=== PATIENT | female | born 1975 | race Caucasian/White ===

== ENCOUNTER 2017-02-08 11:30 | Outpatient (CLI) | payer OTHER | END 2017-02-08 11:31 | disposition home or self-care (01) | DX: R00.0 Tachycardia, unspecified (principal); Z13.29 Encounter for screening for other suspected endocrine disorder ==

== ENCOUNTER 2017-02-08 13:19 | Outpatient (CLI) | payer OTHER | END 2017-02-08 13:20 | disposition home or self-care (01) | DX: R00.0 Tachycardia, unspecified (principal); Z13.29 Encounter for screening for other suspected endocrine disorder ==

== ENCOUNTER 2017-11-07 14:21 | Outpatient (CLI) | payer OTHER ==
--- NOTE | 2017-11-12 13:55 | Mammography Report ---
DATE OF SERVICE: 11/07/2017 DIGITAL SCREENING MAMMOGRAM: 11/07/2017 CLINICAL INDICATION: A 42-year-old for screening. COMPARISON: 08/2016, 05/2014. TECHNIQUE: Routine CC and MLO projections were obtained of the breasts. FINDINGS: The breasts demonstrate heterogeneously dense fibroglandular parenchyma bilaterally. Punc aquino, typically benign calcifications are present. No suspicious masses, clustered microcalcifications, or regions of architectural distortion are identified. IMPRESSION: Benign findings. RECOMMENDATIONS: Routine annual screening unless otherwise clinically indicated. BIRADS category 2 - Benign findings. STANDARD QUALIFYING STATEMENTS 1. This examination was reviewed with the aid of Computed-Aided Detection (CAD). 2. A negative or benign imaging report should not delay biopsy if clinically suspicious findings are present. Consider surgical consultation if warranted. More than 5% of cancers are not identified by imaging. 3. Dense breasts may obscure an underlying neoplasm. TD: 11/08/2017 22:22
== END 2017-11-07 14:22 | disposition home or self-care (01) ==
LOC: DI.S 14:21
PROVIDERS: ATTEND Nurse Practitioner Family
DX: Z12.31 Encounter for screening mammogram for malignant neoplasm of breast (principal)
CPT/HCPCS: 77067

== ENCOUNTER 2018-03-18 13:20 | Emergency (ER) | payer OTHER ==
[2018-03-18 13:32] VITALS: BP 120/76
[2018-03-18] MEDS ORDERED: TETANUS/DIPHTHERIA/PERTUSSIS 0.5 ML SYRINGE IM ONE (14:56)
--- NOTE | 2018-03-18 15:03 | ED Physician Documentation ---
PD HPI UPPER EXT INJURY - Stated complaint Stated Complaint: FINGER SLICER - Chief complaint Chief Complaint: Laceration - History obtained from History obtained from: Patient - History of Present Illness Location: Left, Finger (middle) Type of injury: Laceration Where injury occurred: Work Timing - onset: Today Timing - duration: Minutes Timing - details: Abrupt onset, Still present Improved by: Rest Worsened by: Moving Contributing factors: No: Anticoagulated Similar symptoms before: Diagnosis (laceration) Recently seen: Not recently seen - Additonal information Additional information: 42 year old female with 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 She has a small flap laceration that involves the nail. It goes about one third [address] the way through the nail bed. She was able to control the bleeding with direct pressure and bleeding and continues to be controlled. She was able to work the rest of her shift with a covering over her finger Review of Systems Constitutional: denies: Fever Respiratory: denies: Cough GI: denies: Vomiting Skin: reports: Laceration (s) PD PAST MEDICAL HISTORY - Past Medical History Past Medical History: Yes Respiratory: Asthma EMERGENCY MEDICAL TECH: Ovarian cysts - Past Surgical History Past Surgical History: Yes /EMERGENCY MEDICAL TECH: LEEP (Cervical surgery) - Present Medications Home Medications: Ambulatory Orders Medication Instructions Recorded Confirmed Albuterol Sulfate [Ventolin Hfa] 1 puffs INH Q4H PRN 06/12/16 06/12/16 - Allergies Allergies/Adverse Reactions: Allergies Allergy/AdvReac Type Severity Reaction Status Date / Time amoxicillin Allergy Rash Verified 03/18/18 13:32 Sulfa (Sulfonamide Allergy Rash Verified 03/18/18 13:32 Antibiotics) - Social History Does the pt smoke?: No Smoking Status: Never smoker Does the pt drink ETOH?: No Does the pt have substance abuse?: No - Immunizations Immunizations are current?: No Immunizations: TDAP >10years/unknown - POLST Patient has POLST: No PD ED PE NORMAL - Vitals Vital signs reviewed: Yes (tachy ) - General General: Alert and oriented X 3, No acute distress, Well developed/nourished - HEENT HEENT: Atraumatic, PERRL - Respiratory Respiratory: No respiratory distress - Derm Derm: Normal color, Warm and dry, No rash - Extremities Extremities: Other (There is a 1cm laceration to the tip of the finger and this involves about 1/3 of the nail distally ) - Neuro Neuro: No motor deficit, No sensory deficit Eye Opening: Spontaneous Motor: Obeys Commands Verbal: Oriented GCS Score: 15 - Psych Psych: Normal mood, Normal affect Results - Vitals Vitals: Vital Signs - 24 hr 03/18/18 13:29 Temperature 36.4 C L Heart Rate 104 H Respiratory 15 Rate Blood Pressure 120/76 O2 Saturation 98 Oxygen O2 Source Room air Procedures - Laceration (location) finger tip Length in cm: 1 (through the nail with bleeding controlled. ) Wound type: Curved, Flap, Clean Neurovascular status: Sensory intact, Motor intact, Vascular intact Wound Preparation: Irrigated copiously NS Skin layer closure: Steri strips Other: Patient tolerated well, No complications, Neurovascular intact, Dressing applied, Tetanus booster given PD MEDICAL DECISION MAKING - ED course Complexity details: considered differential, d/w patient, d/w family ED course: 42-year-old female with a fingertip laceration that involves a the edge of the nail bed. Has good control of bleeding Steri-Strips are placed in the nail remains in place. Departure - Departure Disposition: 01 Home, Self Care Clinical Impression: Nailbed laceration, finger Qualifiers: Encounter type: initial encounter Qualified Code(s): S61.319A - Laceration without foreign body of unspecified finger with damage to nail, initial encounter Condition: Stable Instructions: ED Laceration Hand Follow-Up: Ileana Menjivar ARNP [Primary Care Provider] -
== END 2018-03-18 15:34 | disposition home or self-care (01) ==
LOC: ED 13:20
DX: S61.319A Laceration without foreign body of unspecified finger with damage to nail, initial encounter (principal); W31.82XA Contact with other commercial machinery, initial encounter; Y99.0 Civilian activity done for income or pay; Z23 Encounter for immunization
CPT/HCPCS: 1040M; 90471; 90715; 99282; 99283

== ENCOUNTER 2018-05-27 08:00 | Outpatient (CLI) | payer OTHER | END 2018-05-27 08:01 | LOC: LAB.R 08:00 | PROVIDERS: ATTEND Nurse Practitioner Family | DX: L98.9 Disorder of the skin and subcutaneous tissue, unspecified (principal) | CPT/HCPCS: 87070; 87205 ==

== ENCOUNTER 2018-07-30 08:00 | Outpatient (CLI) | payer OTHER | END 2018-07-30 08:01 | disposition home or self-care (01) | LOC: LAB.R 08:00 | PROVIDERS: ATTEND Nurse Practitioner | DX: J03.90 Acute tonsillitis, unspecified (principal) | CPT/HCPCS: 87070; 87077 ==

== ENCOUNTER 2018-08-06 08:04 | Outpatient (CLI) | payer OTHER ==
[2018-08-06 11:20] LABS: ALBUMIN 4.1 g/dL (3.2-5.5); ALBUMIN/GLOBULIN RATIO 1.4 (1.0-2.2); ALKALINE PHOSPHATASE 59 IU/L (42-121); ALT ALANINE AMINOTRANSFERASE 18 IU/L (10-60); AST ASPARTATE AMINOTRANSFERASE 18 IU/L (10-42); BILIRUBIN,TOTAL 0.4 mg/dL (0.2-1.0); BUN - BLOOD UREA NITROGEN 7 mg/dL (6-20); CALCIUM 8.6 mg/dL (8.5-10.3); CARBON DIOXIDE - CO2 24 mmol/L (21-32); CHLORIDE 107 mmol/L (101-111); CHOL/HDL RATIO 4.7 (<4.4); CHOLESTEROL 196 mg/dL; CREATININE 0.8 mg/dL (0.4-1.0); GFR - MDRD 78 (>89); GLUCOSE 91 mg/dL (70-100); HDL CHOLESTEROL 42 mg/dL; LDL CHOLESTEROL,CALCULATED 139 mg/dL; LDL/HDL RATIO 3.3 (<4.4); SODIUM 138 mmol/L (135-145); TOTAL PROTEIN 7.1 g/dL (6.7-8.2); VLDL CHOLESTEROL 15 mg/dL
== END 2018-08-06 08:05 | disposition home or self-care (01) ==
LOC: LAB.F 08:04
PROVIDERS: ATTEND Nurse Practitioner Family
DX: E78.5 Hyperlipidemia, unspecified (principal); Z13.1 Encounter for screening for diabetes mellitus
CPT/HCPCS: 36415; 80053; 80061; 83721

== ENCOUNTER 2018-11-28 15:14 | Outpatient (CLI) | payer OTHER ==
--- NOTE | 2018-12-01 09:25 | Mammography Report ---
Reason: ROUTINE MAMMO Procedure Date: 11/28/2018 Accession Number: [id number] / [id number] Procedure: MARKIE - Screening Mammo w/Jim CPT Code: FULL RESULT: EXAM: Screening Mammo w/Jim DATE: 11/28/2018 4:04 PM CLINICAL HISTORY: Screening encounter. Family history of breast cancer in a maternal grandmother at the age of 65. TECHNIQUE: Bilateral CC and MLO views were obtained. COMPARISON: 10/30/2017 through 05/25/2014. FINDINGS: The breasts demonstrate scattered fibroglandular densities bilaterally. There are typically benign coarse calcifications. No suspicious masses, clustered microcalcifications, or regions of architectural distortion are identified. IMPRESSION: Benign findings RECOMMENDATION: Routine annual screening unless otherwise clinically indicated. BIRADS CATEGORY 2: Benign findings STANDARD QUALIFYING STATEMENTS: 1. This examination was not reviewed with the aid of Computer-Aided Detection (CAD). 2. A negative or benign imaging report should not preclude biopsy if clinically suspicious findings are present. 3. Dense breasts may obscure an underlying neoplasm. 4. This examination was reviewed with the aid of 3D breast imaging (tomosynthesis).
== END 2018-11-28 15:15 | disposition home or self-care (01) ==
LOC: DI 15:14
PROVIDERS: ATTEND Nurse Practitioner
DX: Z12.31 Encounter for screening mammogram for malignant neoplasm of breast (principal); Z80.3 Family history of malignant neoplasm of breast
CPT/HCPCS: 77063; 77067

== ENCOUNTER 2019-12-03 08:02 | Emergency (ER) | payer OTHER ==
[2019-12-03 08:15] VITALS: BP 133/79
--- NOTE | 2019-12-03 08:17 | ED Physician Documentation ---
PD HPI SKIN - Stated complaint Stated Complaint: LEFT FOOT SWELLING - History obtained from History obtained from: Patient - History of Present Illness Timing - onset: Yesterday Timing - duration: Days (1-2) Timing - details: Gradual onset (She noticed feeling of irritation between the little and fourth toes yesterday so applied some ointment thinking it might be dry skin. Today she noted pain swelling and some redness around the area between the toes into the dorsum of the foot.) Location: LLE Quality / character: Painful, Discolored (red), Swelling. 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: LEEP (Cervical surgery) - Present Medications Home Medications: Ambulatory Orders Medication Instructions Recorded Confirmed Albuterol Sulfate [Ventolin Hfa] 1 puffs INH Q4H PRN 06/12/16 06/12/16 Doxycycline Monohydrate 100 mg PO BID #14 tablet 12/03/19 - Allergies Allergies/Adverse Reactions: Allergies Allergy/AdvReac Type Severity Reaction Status Date / Time amoxicillin Allergy Rash Verified 12/03/19 08:15 Sulfa (Sulfonamide Allergy Rash Verified 12/03/19 08:15 Antibiotics) - Social History Does the pt smoke?: No Smoking Status: Never smoker Does the pt drink ETOH?: No Does the pt have substance abuse?: No - Immunizations Immunizations are current?: No Immunizations: TDAP >10years/unknown - POLST Patient has POLST: No PD ED PE NORMAL - Vitals Vital signs reviewed: Yes - General General: Alert and oriented X 3, No acute distress, Well developed/nourished - Derm Derm: Warm and dry - Extremities Extremities: Other (There is redness with a small pustule blister between the fourth and fifth toes in the left foot. Some mild redness on the plantar crease. No foreign body noted. There is some redness with swelling in that area and mild red streak on the dorsum of the foot to the level of the proximal metatarsal area. No bony tenderness. She has good sensation color and capillary refill in the toes. I did hema the pustule with the scalpel tip and got a drop of pus out.) - Neuro Neuro: No motor deficit, No sensory deficit Results - Vitals Vitals: Vital Signs - 24 hr 12/03/19 08:12 Temperature 36.8 C Heart Rate 95 Respiratory 15 Rate Blood Pressure 133/79 H O2 Saturation 98 Oxygen O2 Source Room air Departure - Departure Disposition: Home, Self Care Clinical Impression: Left foot infection Condition: Stable Record reviewed to determine appropriate education?: Yes Instructions: ED Staph Infec Abx Tx Only Follow-Up: Anila Hernandez PA-C [Primary Care Provider] - Prescriptions: Doxycycline Monohydrate 100 mg PO BID #14 tablet Comments: Keep your foot elevated today to reduce swelling. Soak it in warm water 2-3 times a day today and tomorrow. You can continue ointment locally at the area. Doxycycline oral antibiotic twice daily for 5 to 7 days until the looks completely weird. Tylenol or ibuprofen if needed for pains. Forms: Activity restrictions
[2019-12-03] MEDS ORDERED: ACETAMINOPHEN 325 MG TABLET PO STA (08:26)
[2019-12-03] MEDS ORDERED: DOXYCYCLINE 100 MG TABLET PO STA (08:26)
== END 2019-12-03 08:42 | disposition home or self-care (01) ==
LOC: ED 08:02
DX: L08.9 Local infection of the skin and subcutaneous tissue, unspecified (principal)
CPT/HCPCS: 99282; 99283; A9270

== ENCOUNTER 2019-12-29 14:59 | Outpatient (CLI) | payer OTHER ==
--- NOTE | 2019-12-29 16:30 | Mammography Report ---
Reason: ROUTINE MAMMO Procedure Date: 12/29/2019 Accession Number: [id number] / [id number] Procedure: MARKIE - Screening Mammo w/Jim CPT Code: Final Report FULL RESULT: EXAM: Screening Mammo w/Jim DATE: 12/29/2019 3:49 PM CLINICAL HISTORY: Screening encounter. TECHNIQUE: (B) - Bilateral CC and MLO views were obtained. COMPARISON: 11/28/2018 through 05/25/2014. PARENCHYMAL PATTERN: (D) - The breast(s) demonstrate(s) heterogeneously dense fibroglandular parenchyma. FINDINGS: There are no suspicious masses, calcifications, or areas of distortion. IMPRESSION: Negative examination. BI-RADS category 1. RECOMMENDATION: (ANNUAL) - Recommend routine annual screening mammography. BI-RADS CATEGORY: (1) - Negative. STANDARD QUALIFYING STATEMENTS: 1. This examination was not reviewed with the aid of Computer-Aided Detection (CAD). 2. A negative or benign imaging report should not preclude biopsy if clinically suspicious findings are present. 3. Dense breasts may obscure an underlying neoplasm. 4. This examination was reviewed with the aid of 3D breast imaging (tomosynthesis).
== END 2019-12-29 15:00 | disposition home or self-care (01) ==
LOC: DI 14:59
DX: Z12.31 Encounter for screening mammogram for malignant neoplasm of breast (principal)
CPT/HCPCS: 77063; 77067

== ENCOUNTER 2020-09-20 08:00 | Outpatient (CLI) | payer OTHER | END 2020-09-20 23:59 | disposition home or self-care (01) | LOC: LAB.R 08:00 | PROVIDERS: ATTEND Nurse Practitioner Obstetrics & Gynecology | DX: N76.4 Abscess of vulva (principal) | CPT/HCPCS: 87081 ==

== ENCOUNTER 2021-01-09 08:00 | Outpatient (CLI) | payer OTHER | END 2021-01-09 23:59 | disposition home or self-care (01) | LOC: LAB.S 08:00 | PROVIDERS: ATTEND Physician Assistant Medical | DX: R31.9 Hematuria, unspecified (principal) | CPT/HCPCS: 87086 ==

== ENCOUNTER 2021-01-15 14:17 | Outpatient (CLI) | payer OTHER ==
--- NOTE | 2021-01-17 11:34 | Mammography Report ---
BILATERAL DIGITAL SCREENING MAMMOGRAM 3D/2D: 01/15/2021 CLINICAL: Routine screening. Comparisons: 12/29/2019, 11/28/2018, 11/07/2017, 08/30/2016. The tissue of both breasts is heterogeneously dense. This may lower the sensitivity of mammography. No significant masses, calcifications, or other findings are seen in either breast. IMPRESSION: NEGATIVE There is no mammographic evidence of malignancy. A 1 year screening mammogram is recommended. This exam was interpreted at Station ID: [id number]. NOTE: For mammograms, a report in lay terms will be sent to the patient. Approximately 15% of breast malignancies will not be visualized mammographically. In the management of a palpable breast mass, a negative mammogram must not discourage biopsy of a clinically suspicious lesion. Electronically Signed By: Francisco Vu M.D. aty/:01/16/2021 08:02:44 ACR BI-RADS Category 1: Negative 3341F PARENCHYMAL PATTERN: (D) - The breast(s) demonstrate(s) heterogeneously dense fibroglandular anca beltrán. BI-RADS CATEGORY: (1) - 1 RECOMMENDATION: (ANNUAL) - Recommend routine annual screening mammography. [id number] 1 year screening LATERALITY: (B)
== END 2021-01-15 14:18 | disposition home or self-care (01) ==
LOC: DI.S 14:17
DX: Z12.31 Encounter for screening mammogram for malignant neoplasm of breast (principal)

== ENCOUNTER 2021-02-20 08:00 | Outpatient (CLI) | payer OTHER | END 2021-02-20 23:59 | disposition home or self-care (01) | LOC: LAB.S 08:00 | PROVIDERS: ATTEND Physician Assistant Medical | DX: R07.0 Pain in throat (principal); Z20.822 Contact with and (suspected) exposure to COVID-19 | CPT/HCPCS: 87070 ==

== ENCOUNTER 2021-06-30 08:35 | Outpatient (CLI) | payer OTHER ==
[2021-06-30 14:30] LABS: BASOPHILS % (AUTO) 0.4 %; EOSINOPHILS # (AUTO) 0.1 10^3/uL (0.0-0.7); EOSINOPHILS % (AUTO) 1.3 %; HCT - HEMATOCRIT 45.5 % (37.0-47.0); HGB - HEMOGLOBIN 14.5 g/dL (12.0-16.0); LYMPHOCYTES # (AUTO) 2.5 10^3/uL (1.5-3.5); LYMPHOCYTES % (AUTO) 35.2 %; MEAN CORPUSCULAR HEMOGLOBIN 29.5 pg (27.0-31.0); MEAN CORPUSCULAR HGB CONC 31.9 g/dL (32.0-36.0); MEAN CORPUSCULAR VOLUME 92.7 fL (81.0-99.0); MEAN PLATELET VOLUME 10.3 fL (7.9-10.8); MONOCYTES # (AUTO) 0.7 10^3/uL (0.0-1.0); MONOCYTES % (AUTO) 9.2 %; NEUTROPHILS # (AUTO) 3.8 10^3/uL (1.5-6.6); NEUTROPHILS % (AUTO) 53.6 %; PLT - PLATELET COUNT 279 10^3/uL (130-450); RED BLOOD COUNT 4.91 10^6/uL (4.20-5.40); RED CELL DISTRIBUTION WIDTH 12.8 % (12.0-15.0); WHITE BLOOD COUNT 7.2 x10^3/uL (4.8-10.8)
[2021-06-30 14:51] LABS: ALBUMIN 4.3 g/dL (3.2-5.5); ALBUMIN/GLOBULIN RATIO 1.6 (1.0-2.2); ALKALINE PHOSPHATASE 51 IU/L (42-121); ALT ALANINE AMINOTRANSFERASE 21 IU/L (10-60); AST ASPARTATE AMINOTRANSFERASE 18 IU/L (10-42); BILIRUBIN,TOTAL 0.7 mg/dL (0.2-1.0); BUN - BLOOD UREA NITROGEN 15 mg/dL (6-20); CALCIUM 8.7 mg/dL (8.5-10.3); CARBON DIOXIDE - CO2 24 mmol/L (21-32); CHLORIDE 108 mmol/L (101-111); CHOL/HDL RATIO 4.1 (<4.4); CHOLESTEROL 239 mg/dL; CREATININE 0.6 mg/dL (0.4-1.0); GFR - MDRD 107 (>89); GLUCOSE 90 mg/dL (70-100); HDL CHOLESTEROL 58 mg/dL; LDL CHOLESTEROL,CALCULATED 169 mg/dL; LDL/HDL RATIO 2.9 (<4.4); POTASSIUM 4.3 mmol/L (3.5-5.0); SODIUM 140 mmol/L (135-145); TRIGLYCERIDES 59 mg/dL; VLDL CHOLESTEROL 12 mg/dL
[2021-06-30 14:57] LABS: THYROID STIMULATING HORMONE 1.04 uIU/mL (0.34-5.60)
== END 2021-06-30 08:36 | disposition home or self-care (01) ==
LOC: LAB.S 08:35
PROVIDERS: ATTEND Registered Nurse
DX: Z00.00 Encounter for general adult medical examination without abnormal findings (principal); Z79.899 Other long term (current) drug therapy; K58.9 Irritable bowel syndrome, unspecified; K21.9 Gastro-esophageal reflux disease without esophagitis; J45.909 Unspecified asthma, uncomplicated
CPT/HCPCS: 36415; 80053; 80061; 83721; 84443; 85025

== ENCOUNTER 2022-11-13 10:51 | Outpatient (CLI) | payer OTHER ==
--- NOTE | 2022-11-13 11:30 | XRAY Report ---
PROCEDURE: Toe(s) LT INDICATIONS: CRUSHING INJURY TO LEFT GREAT TOE TECHNIQUE: 3 views of the left toe(s) acquired. COMPARISON: None FINDINGS: Bones: No fractures or dislocations. No suspicious bony lesions. Soft tissues: No suspicious soft tissue densities. IMPRESSION: Unremarkable left first toe radiographs Reviewed by: Anderson Cr MD on 11/13/2022 10:28 AM [facility] Approved by: Anderson Cr MD on 11/13/2022 10:28 AM [facility] Station ID: [id number]
== END 2022-11-13 10:52 | disposition home or self-care (01) ==
LOC: DI.S 10:51
PROVIDERS: ATTEND Physician Assistant Medical
DX: S97.112A Crushing injury of left great toe, initial encounter (principal)
CPT/HCPCS: 73660

== ENCOUNTER 2022-12-04 08:00 | Outpatient (CLI) | payer OTHER | END 2022-12-04 23:59 | disposition home or self-care (01) | LOC: LAB.S 08:00 | PROVIDERS: ATTEND Physician Assistant Medical | DX: R35.0 Frequency of micturition (principal); R10.9 Unspecified abdominal pain | CPT/HCPCS: 87086 ==

== ENCOUNTER 2023-06-06 08:00 | Outpatient (CLI) | payer OTHER ==
--- NOTE | 2023-06-07 17:09 | XRAY Report ---
PROCEDURE: Hand 3 View LT INDICATIONS: LEFT FINGER TENDINITIS TECHNIQUE: 3 views of the hand(s) acquired. COMPARISON: None. FINDINGS: Bones: No fractures or dislocations. No suspicious bony lesions. Minimal scattered IP narrowing. Soft tissues: No suspicious soft tissue calcifications or masses. IMPRESSION: No acute bony abnormality. Reviewed by: Tamela Bhatti MD on 06/07/2023 5:08 PM PDT Approved by: Tamela Bhatti MD on 06/07/2023 5:08 PM PDT Station ID: [id number]
== END 2023-06-06 23:59 | disposition home or self-care (01) ==
LOC: DI.S 08:00
PROVIDERS: ATTEND Emergency Medicine
DX: M77.9 Enthesopathy, unspecified (principal)

== ENCOUNTER 2023-10-30 09:47 | Outpatient (CLI) | payer OTHER ==
--- NOTE | 2023-10-31 08:24 | Mammography Report ---
BILATERAL DIGITAL SCREENING MAMMOGRAM 3D/2D: 10/30/2023 CLINICAL: Routine screening. Family history of breast cancer. Comparison is made to exams dated: 01/15/2021 mammogram, 12/29/2019 mammogram, and 11/28/2018 mammogram - [facility]. There are scattered areas of fibroglandular density in both breasts (category b / 25%-50% glandular t issue). No significant masses, calcifications, or other findings are seen in either breast. There has been no significant interval change. IMPRESSION: NEGATIVE There is no mammographic evidence of malignancy. A 1 year screening mammogram is recommended. Based on the Tyrer Cuzick model (a risk assessment model) the patients lifetime risk is 5.9% and her 10 year risk is 1.3%. According to the ACR, ACS, and NCCN guidelines, an annual breast MRI exam syd g with mammogram is recommended if the patients lifetime risk is 20% or greater. This exam was interpreted at Station ID: [id number]. NOTE: For mammograms, a report in lay terms will be sent to the patient. Approximately 15% of breast malignancies will not be visualized mammographically. In the management of a palpable breast mass, a negative mammogram must not discourage biopsy of a clinically suspicious lesion. Electronically Signed By: Lorie sanabria/pablo:10/30/2023 16:32:31 letter sent: No_Letter ACR BI-RADS Category 1: Negative 3341F PARENCHYMAL PATTERN: (A) - The breast(s) demonstrate(s) scattered fibroglandular densities. BI-RADS CATEGORY: (1) - 1 Mammogram [id number] 1 year screening LATERALITY: (B)
== END 2023-10-30 09:48 | disposition home or self-care (01) ==
LOC: DI.S 09:47
PROVIDERS: ATTEND Nurse Practitioner Family
DX: Z12.31 Encounter for screening mammogram for malignant neoplasm of breast (principal); Z80.3 Family history of malignant neoplasm of breast; R92.323 Mammographic fibroglandular density, bilateral breasts

== ENCOUNTER 2023-12-10 14:27 | Outpatient (CLI) | payer OTHER ==
[2023-12-10 20:16] LABS: BILIRUBIN,URINE NEGATIVE (NEGATIVE); GLUCOSE, URINE (UA) NEGATIVE (NEGATIVE); KETONES,URINE (UA) NEGATIVE (NEGATIVE); LEUKOCYTE ESTERASE, URINE MODERATE (NEGATIVE); NITRITE,URINE NEGATIVE (NEGATIVE); OCCULT BLOOD,URINE NEGATIVE (NEGATIVE); PROTEIN,URINE NEGATIVE (NEGATIVE); UROBILINOGEN,URINE 0.2 (NORMAL) E.U./dL (NORMAL)
[2023-12-10 20:18] LABS: CLARITY,URINE CLEAR (CLEAR)
[2023-12-10 20:37] LABS: BACTERIA,URINE Rare /HPF (None Seen); CRYSTALS,URINE >50 Uric Acid /LPF; EPITHELIAL CELLS,UR FEW Transitional /HPF (<= Few); RBC,URINE 0-5 /HPF (0-5); SQUAMOUS EPITHELIAL CELL,UR FEW Squamous (<= Few)
== END 2023-12-10 14:28 | disposition home or self-care (01) ==
LOC: LAB.S 14:27
PROVIDERS: ATTEND Obstetrics & Gynecology
DX: R10.2 Pelvic and perineal pain (principal); Z79.899 Other long term (current) drug therapy
CPT/HCPCS: 36415; 81001; 83001; 87086

== ENCOUNTER 2024-03-22 12:18 | Emergency (ER) | payer OTHER ==
--- NOTE | 2024-03-22 14:45 | ED Physician Documentation ---
History of Present Illness - Stated complaint Stated Complaint: LT HAND LAC - Chief complaint Chief Complaint: Laceration - History obtained from History obtained from: Patient, Family - History of Present Illness Timing: Today Pain level max: 4 Pain level now: 3 - Additonal information Additional information: Patient is a 48-year-old female who works at [employer]. 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 Last tetanus shot was 2017. Patient is right-handed. Patient is not anticoagulated. Worse with movement, better with rest. No numbness or tingling. 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: LEEP (Cervical surgery) - Present Medications Home Medications: Ambulatory Orders Medication Instructions Recorded Confirmed Albuterol Sulfate [Ventolin Hfa] 1 puffs INH Q4H PRN 06/12/16 03/22/24 - Allergies Allergies/Adverse Reactions: Allergies Allergy/AdvReac Type Severity Reaction Status Date / Time amoxicillin Allergy Rash Verified 03/22/24 12:28 Sulfa (Sulfonamide Allergy Rash Verified 03/22/24 12:28 Antibiotics) - Social History Does the pt smoke?: No Smoking Status: Never smoker Does the pt drink ETOH?: No Does the pt have substance abuse?: No - Immunizations Immunizations are current?: Yes Immunizations: TDAP >10years/unknown - POLST Patient has POLST: No PD ED PE NORMAL - Vitals Vital signs reviewed: Yes - General General: Alert and oriented X 3 - HEENT HEENT: Moist mucous membranes - Derm Derm: Warm and dry - Extremities Extremities: Other (There is a 3 cm, linear laceration to the thenar eminence of the left hand. Neurovascular intact. Tendons intact.) - Neuro Neuro: Alert and oriented X 3 Results - Vitals Vitals: Vital Signs - 24 hr 03/22/24 03/22/24 12:28 14:57 Temperature 36.6 C Heart Rate 92 86 Respiratory 16 16 Rate Blood Pressure 125/88 H 127/77 O2 Saturation 100 96 Oxygen O2 Source Room air Procedures - Laceration (location) Left thumb Length in cm: 3 Wound type: Linear, Into subcut fat, Clean Neurovascular status: Sensory intact, Motor intact, Vascular intact Tendon involvement: Tendon intact Anesthesia: Lidocaine 1% Wound preparation: Irrigated copiously NS (500ml), Wound explored, To the base Skin layer closure: Nylon, Interrupted, Size #-0 - enter number (4) Other: Patient tolerated well, No complications, Neurovascular intact, Dressing applied, Tetanus UTD PD Medical Decision Making - ED course Complexity details: reviewed results, re-evaluated patient, considered differential, d/w patient ED course: 48-year-old female with a left thumb laceration. This is to the thenar eminence from a gill box operator while at work. Placed in a Velcro thumb spica after laceration repair to help immobilize the area while it heals. Released her to light duty at work. Restriction/PAF form was filled out. [id number] was also filled out. Warnings of infection and instructions on wound care given at bedside. Also counseled on how to minimize scarring. Patient counseled regarding signs and symptoms for which I believe and urgent re-evaluation would be necessary. Patient with good understanding of and agreement to plan and is co mfortable going home at this time This document was made in part using voice recognition software. While efforts are made to proofread this document, sound alike and grammatical errors may occur. Departure - Departure Disposition: 01 Home, Self Care Clinical Impression: Laceration of thumb, left Qualifiers: Encounter type: initial encounter Damage to nail status: without damage Foreign body presence: without foreign body Qualified Code(s): S61.012A - Laceration without foreign body of left thumb without damage to nail, initial encounter Condition: Good Instructions: ED Laceration Hand Follow-Up: your,doctor in 10-14 days [Other] Comments: Your laceration was repaired. Please follow-up with your doctor for further care. The sutures should be removed in approximately 10 to 14 days. Your doctor can also release you back to regular work at that time. Warnings of infection and instructions on wound care given at bedside. Also counseled on how to minimize scarring. Your last tetanus shot was 2017 and you do not need another one today. You can wear the Velcro thumb spica for comfort and to help protect the area. Please make sure that you are checking the wound twice daily and changing any dressings that are soiled. Forms: PCP List Discharge Date/Time: 03/22/24 14:57
[2024-03-22 15:01] VITALS: BP 127/77; O2SAT 96
== END 2024-03-22 14:57 | disposition home or self-care (01) ==
LOC: ED 12:18
DX: S61.012A Laceration without foreign body of left thumb without damage to nail, initial encounter (principal); W26.0XXA Contact with knife, initial encounter; Y92.89 Other specified places as the place of occurrence of the external cause; Y99.0 Civilian activity done for income or pay; J45.909 Unspecified asthma, uncomplicated
CPT/HCPCS: 12002; 99282